=== PATIENT | male | born 1970 | race Caucasian/White ===

== ENCOUNTER 2021-02-10 14:45 | Emergency (ER) | payer BC ==
[~2021-02-10] VITALS: Ht 172.7 cm; Wt 90.7 kg
[2021-02-10 15:09] VITALS: BP 158/100
[2021-02-10] MEDS ORDERED: MECL-335 PO (16:07)
[2021-02-10] MEDS ORDERED: ONDA8TAB87 PO (16:07)
[2021-02-10] MEDS ORDERED: IBUP-2213 PO (16:07)
--- NOTE | 2021-02-10 16:15 | NUR ---
PT SEEN AND CLEARED FOR DISCHARGE BY DR THURMAN, NO NURSING INTERVENTIONS PROVIDED.
--- NOTE | 2021-02-10 16:15 | NUR ---
Patient discharged with v/s stable. Written and verbal after care instructions ABOUT VERTIGO given and explained. Patient alert, oriented and verbalized understanding of instructions. Ambulatory with steady gait. All questions addressed prior to discharge. ID band removed. Patient advised to follow up with PMD. Rx of IBUPROFEN, MECLIZINE, AND ZOFRAN given. Patient educated on indication of medication including possible reaction and side effects. Opportunity to ask questions provided and answered.
== END 2021-02-10 16:15 | disposition home or self-care (01) ==
LOC: MED 14:45
DX: U07.1 COVID-19 (principal); R42 Dizziness and giddiness; Z79.899 Other long term (current) drug therapy
CPT/HCPCS: 99283